=== PATIENT | female | born 1945 | race Caucasian/White ===

== ENCOUNTER 2019-04-07 14:15 | Observation (INO) | payer MEDICARE, OTHER ==
[2019-04-07] MEDS ORDERED: Sodium Chloride 0.9% 10 ML Syringe FLUSH PRN (14:17)
[2019-04-07] MEDS: Sodium Chloride 0.9% 1,000 ML IV SCH (16:22)
[2019-04-07] MEDS ORDERED: Warfarin 2.5 MG Tab PO SCH (18:00)
[2019-04-07] MEDS: Carvedilol 12.5 MG Tab PO SCH (18:11)
[2019-04-07] MEDS: Fluticasone Propionate Nasal Spray 16 GM Bottle NASBOTH SCH (20:21)
[2019-04-07] MEDS ORDERED: Digoxin 125 MCG Tab PO SCH (21:00)
[2019-04-07] MEDS ORDERED: atorvaSTATin 10 MG Tab PO SCH (21:00)
[2019-04-08] MEDS: Sodium Chloride 0.9% 1,000 ML IV SCH (05:23)
[2019-04-08 08:04] LABS: ANION GAP 14.7 mmol/L (5-15)
[2019-04-08] MEDS ORDERED: Allopurinol 100 MG Tab PO SCH (09:00)
[2019-04-08] MEDS ORDERED: Spironolactone 25 MG Tab PO SCH (09:00)
[2019-04-08] MEDS ORDERED: Lisinopril 5 MG Tab PO SCH (09:00)
[2019-04-08] MEDS: Fluticasone Propionate Nasal Spray 16 GM Bottle NASBOTH SCH (09:08)
[2019-04-08] MEDS: Carvedilol 12.5 MG Tab PO SCH (09:11)
--- NOTE | 2019-04-08 09:58 | PCM.DCSUM1 ---
Discharge Summary - Hospital Course Diagnosis: Stroke: No - Discharge Data Discharge Date: 04/08/19 Discharge Disposition: Home, Self-Care 01 Condition: Good - Referral to Home Health Primary Care Physician: Dee Clark MD - Discharge Plan *PRESCRIPTION DRUG MONITORING PROGRAM REVIEWED*: Not Applicable *COPY OF PRESCRIPTION DRUG MONITORING REPORT IN PATIENT DONALD: Not Applicable Prescriptions/Med Rec: Cephalexin [Keflex] 500 mg PO BID 5 Days #10 capsule Home Medications: Home Meds Allopurinol [Zyloprim] 200 mg PO DAILY 04/07/16 [History] Cholecalciferol (Vitamin D3) [Vitamin D3] 1,000 units PO DAILY 04/07/16 [History ] Digoxin 0.125 mg PO BEDTIME 04/07/16 [History] Lisinopril 5 mg PO DAILY 04/07/16 [History] Spironolactone 25 mg PO DAILY 04/07/16 [History] Warfarin [Coumadin] 5 mg PO MOWEFR 04/07/16 [History] atorvaSTATin [Lipitor] 10 mg PO BEDTIME 04/07/16 [History] carvediloL [Carvedilol] 37.5 mg PO BIDMEALS 04/07/16 [History] Calcium Carbonate/Vitamin D3 [Calcium 600-Vit D3 400 Tablet] 1 each PO DAILY@ 0800 04/07/19 [History] Fluticasone Propionate [Flonase] 1 spray NASBOTH BID 04/07/19 [History] Multivit-Min/Iron/Folic/Lutein [Centrum Silver Women Tablet] 1 each PO DAILY [History] Warfarin [Coumadin] 2.5 mg PO SUTUTHSA 04/07/19 [History] metroNIDAZOLE [Flagyl] 500 mg PO BID 04/07/19 [History] Cephalexin [Keflex] 500 mg PO BID 5 Days #10 capsule 04/08/19 [Rx] Referrals: Dee Clark MD [Primary Care Provider] - 04/15/19 10:00 am (Within one week ) - Discharge Summary/Plan Comment DC Time >30 min.: Yes Discharge Summary/Plan Comment: Final Dx ASAEL, prerenal, resolved Dehydration, prerenal, resolved Urinary tract infection, History Summary 73yr female admitted into observation yesterday afternoon by Dr. Sujey echavarria due to weakness, dehydration, acute kidney injury all sequela of a presumed UTI. Patient was diagnosed with UTI and had not picked up her medication. Patient upon evaluation reported not feeling well in the past few days with some generalized body aches, chills and feverish coupled with bladder discomfort. Patient admitted not feeling of her had been able to keep fluids down. Prior to admission she was administered 1 g of ceftriaxone. Blood cultures were taken and she was admitted into observation with IV fluids and close monitoring. Hospital course, Short overnight stay was quite uneventful, the next morning on rounds she was afebrile, still felt somewhat weak however was determined to be discharged, IV fluids were given at 75 cc an hour isotonic saline, she was euvolemic with equal intake/output. Was withdrawn, she was given 1 g of ceftriaxone prior to admission. - General Info Date of Service: 04/08/19 Functional Status: Reports: Pain Controlled, Tolerating Diet, Ambulating, Urinating. Denies: New Symptoms - Review of Systems General: Reports: Fatigue (mild). Denies: Fever, Weakness HEENT: Reports: No Symptoms Pulmonary: Reports: No Symptoms Cardiovascular: Reports: No Symptoms Gastrointestinal: Reports: No Symptoms Skin: Denies: Dryness Neurological: Denies: Confusion - Patient Data Vitals - Most Recent: Last Vital Signs Temp 98.2 F 04/08/19 06:17 Pulse 60 04/08/19 09:11 Resp 20 04/08/19 06:17 BP 103/41 L 04/08/19 09:11 Pulse Ox 93 L 04/08/19 06:17 Weight - Most Recent: 142 lb 3.2 oz I&O - Last 24 hours: Intake & Output 04/07/19 04/08/19 04/08/19 22:59 06:59 14:59 Intake Total 956 1301 Output Total 500 1700 Balance 456 -399 Lab Results - Last 24 hrs: Laboratory Results - last 24 hr 04/07/19 04/08/19 04/08/19 Range/Units 17:41 07:30 07:30 WBC 7.45 (5.00-10.00) 10^3/uL RBC 3.61 L (3.80-5.50) 10^6/uL Hgb 11.5 L (12.0-16.0) g/dL Hct 33.9 L (37.0-47.0) % MCV 93.9 H (82.0-92.0) fL MCH 31.9 H (27.0-31.0) pg MCHC 33.9 (32.0-36.0) g/dL RDW 13.6 (11.5-14.5) % Plt Count 137 L (150-400) 10^3/uL MPV 10.8 H (7.4-10.4) fL Immature Gran % (Auto) 0.4 (0.0-5.0) % Neut % (Auto) 76.6 H (50.0-70.0) % Lymph % (Auto) 8.3 L (20.0-40.0) % [place] % (Auto) 14.1 H (2.0-8.0) % Eos % (Auto) 0.3 L (1.0-3.0) % Baso % (Auto) 0.3 (0.0-1.0) % Immature Gran # (Auto) 0.03 (0.00-0.50) 10^3/uL Neut # (Auto) 5.71 (2.50-7.00) 10^3/uL Lymph # (Auto) 0.62 L (1.00-4.00) 10^3/uL [place] # (Auto) 1.05 H (0.10-0.80) 10^3/uL Eos # (Auto) 0.02 L (0.10-0.30) 10^3/uL Baso # (Auto) 0.02 (0.00-0.10) 10^3/uL PT TNP INR 1.7 H (0.9-1.1) Sodium 133 L (136-145) mmol/L Potassium 4.4 (3.3-5.3) mmol/L Chloride 100 (98-115) mmol/L Carbon Dioxide 22.7 (21.0-32.0) mmol/L Anion Gap 14.7 (5-15) mmol/L BUN 33 H (6-25) mg/dL Creatinine 1.10 (0.51-1.17) mg/dL Est Cr Clr Drug Dosing 43.63 mL/min Estimated GFR (MDRD) 49 mL/min Glucose 169 H (75 - 99) mg/dL Calcium 8.2 L (8.7-10.3) mg/dL Med Orders - Current: Current Medications Allopurinol (Zyloprim) 200 mg PO DAILY [facility] Last Admin: 04/08/19 09:08 Dose: 200 mg Atorvastatin Calcium (Lipitor) 10 mg PO BEDTIME [facility] Last Admin: 04/07/19 20:21 Dose: 10 mg Carvedilol (Coreg) 37.5 mg PO BIDMEALS [facility] Last Admin: 04/08/19 09:11 Dose: 37.5 mg Ceftriaxone Sodium (Rocephin) 1 gm IVPUSH ONETIME ONE Stop: 04/08/19 14:01 Digoxin (Lanoxin) 125 mcg PO BEDTIME [facility] Last Admin: 04/07/19 20:21 Dose: 125 mcg Fluticasone Propionate (Flonase) 0 gm NASBOTH BID [facility] Last Admin: 04/08/19 09:08 Dose: 1 spray Lisinopril (Prinivil) 5 mg PO DAILY [facility] Last Admin: 04/08/19 09:12 Dose: Not Given Sodium Chloride (Saline Flush) 10 ml FLUSH Q8HR PRN PRN Reason: keep vein open Last Admin: 04/07/19 16:29 Dose: 10 ml Spironolactone (Aldactone) 25 mg PO DAILY [facility] Last Admin: 04/08/19 09:07 Dose: 25 mg Warfarin Sodium (Coumadin) 2.5 mg PO SUTUTHSA [facility] Last Admin: 04/07/19 18:13 Dose: 2.5 mg Warfarin Sodium (Coumadin) 5 mg PO MOWEFR [facility] Discontinued Medications Sodium Chloride (Normal Saline) 1,000 mls @ 125 mls/hr IV ASDIRECTED [facility] Last Infusion: 04/08/19 09:17 Dose: 150 mls/hr - Exam Quality Assessment: Denies: Supplemental Oxygen General: Reports: Alert, Oriented, Cooperative, No Acute Distress Lungs: Reports: Clear to Auscultation, Normal Respiratory Effort Cardiovascular: Reports: Regular Rate, Regular Rhythm GI/Abdominal Exam: Normal Bowel Sounds, Soft, No Distention, Other (no suprapubic/bladder tenderness). No: Distended Back Exam: Denies: CVA Tenderness (L), CVA Tenderness (R) Psy/Mental Status: Reports: Alert, Normal Affect, Normal Mood
[2019-04-08 11:00] VITALS: BP 116/64; PULSE 82
[2019-04-08] MEDS ORDERED: cefTRIAXone 1 GM Vial IVPUSH ONE (14:00)
[2019-04-08] MEDS ORDERED: Warfarin 5 MG Tab PO SCH (18:00)
== END 2019-04-08 14:47 | disposition home or self-care (01) ==
LOC: KA.MS 14:15
PROVIDERS: ADMIT Family Medicine; ATTEND Family Medicine
DX: N17.9 Acute kidney failure, unspecified (principal); E86.0 Dehydration; N39.0 Urinary tract infection, site not specified; I13.0 Hypertensive heart and chronic kidney disease with heart failure and stage 1 through stage 4 chronic kidney disease, or unspecified chronic kidney disease; E11.22 Type 2 diabetes mellitus with diabetic chronic kidney disease; I50.42 Chronic combined systolic (congestive) and diastolic (congestive) heart failure; N18.3 Chronic kidney disease, stage 3 (moderate); I25.10 Atherosclerotic heart disease of native coronary artery without angina pectoris; E78.00 Pure hypercholesterolemia, unspecified; I48.20 Chronic atrial fibrillation, unspecified; M19.90 Unspecified osteoarthritis, unspecified site; Z79.01 Long term (current) use of anticoagulants; Z79.899 Other long term (current) drug therapy; Z88.0 Allergy status to penicillin; Z91.018 Allergy to other foods; Z88.2 Allergy status to sulfonamides; Z95.810 Presence of automatic (implantable) cardiac defibrillator
CPT/HCPCS: 36415; 36416; 80048; 85025; 85610; 87040; 96361; 96374; A9270-GY; G0378; J0696; J7030

== ENCOUNTER 2019-12-22 19:13 | Emergency (ER) | payer MEDICARE, OTHER ==
[2019-12-22] MEDS ORDERED: Sodium Chloride 0.9% 10 ML Syringe FLUSH PRN (19:40)
[2019-12-22] MEDS ORDERED: Ondansetron 4 MG/2 ML SDV IVPUSH ONE (19:41)
[2019-12-22] MEDS ORDERED: Sodium Chloride 0.9% 500 ML IV ONE (19:41)
[2019-12-22] MEDS ORDERED: Meclizine 25 MG Tab PO ONE (20:04)
--- NOTE | 2019-12-22 20:04 | EDM.PDOC ---
ED HPI GENERAL MEDICAL PROBLEM - General Chief Complaint: General Stated Complaint: VOMITTING Time Seen by Provider: 12/22/19 19:50 Source of Information: Reports: Patient History Limitations: Reports: No Limitations - History of Present Illness INITIAL COMMENTS - FREE TEXT/NARRATIVE: 74 YO WF PRESENTS TO ER WITH 4 HOUR HISTORY OF DIZZINESS, WITH ASSOCIATED ATAXIA AND VOMITING X 3. PT REPORTS SYMPTOMS ARE WORSE WITH STANDING. PT DENIES ANY SLURRED SPEECH, CONFUSION, BLURRED VISION OR FOCAL NEURO DEFICITS. PT DENIES FEVER/CHILLS, NO URI SYMPTOMS, NO COUGH/CONGESTION, NO HEADACHE AND NO DIARRHEA. PT REPORTS SIMILAR SYMPTOMS IN THE PAST BUT UNCLEAR IF SHE'S BEEN TOLD IT WAS RELATED TO VERTIGO. PT DENIES CHEST PAIN OR SHORTNESS OF BREATH. PT DENIES ANY PREVIOUS WORKUP FOR SIMILAR SYMPTOMS. Onset: Today Duration: Hour(s): (4) Location: Reports: Head, Generalized Severity: Mild Improves with: Reports: Rest Worsens with: Reports: Movement Associated Symptoms: Reports: No Other Symptoms, Nausea/Vomiting, Weakness. Denies: Confusion, Chest Pain, Cough, Diaphoresis, Fever/Chills, Headaches, Loss of Appetite, Malaise, Rash, Seizure, Shortness of Breath, Syncope - Related Data Allergies Allergy/AdvReac Type Severity Reaction Status Date / Time grapefruit Allergy Hives Verified 12/22/19 19:58 kiwi Allergy Mouth Sores Verified 12/22/19 19:58 Penicillins Allergy Hives Verified 12/22/19 19:58 Home Meds: Home Meds Allopurinol [Zyloprim] 200 mg PO DAILY 04/07/16 [History] Cholecalciferol (Vitamin D3) [Vitamin D3] 1,000 units PO DAILY 04/07/16 [History] Digoxin 0.125 mg PO BEDTIME 04/07/16 [History] Lisinopril 5 mg PO DAILY 04/07/16 [History] Spironolactone 25 mg PO DAILY 04/07/16 [History] Warfarin [Coumadin] 5 mg PO SUTUTHSA 04/07/16 [History] atorvaSTATin [Lipitor] 10 mg PO BEDTIME 04/07/16 [History] carvediloL [Carvedilol] 37.5 mg PO BIDMEALS 04/07/16 [History] Calcium Carbonate/Vitamin D3 [Calcium 600-Vit D3 400 Tablet] 1 each PO DAILY@0800 04/07/19 [History] Fluticasone Propionate [Flonase] 1 spray NASBOTH BID 04/07/19 [History] Multivit-Min/Iron/Folic/Lutein [Centrum Silver Women Tablet] 1 each PO DAILY 04/07/19 [History] Warfarin [Coumadin] 2.5 mg PO MOWEFR 04/07/19 [History] Meclizine [Antivert] 25 mg PO TID #30 tab 12/22/19 [Rx] Ondansetron [Zofran ODT] 4 mg PO Q6H PRN #10 tab.dis 12/22/19 [Rx] Past Medical History HEENT History: Reports: Impaired Vision, Sinusitis Cardiovascular History: Reports: Afib, High Cholesterol, Hypertension, [place] Other Cardiovascular History: implantable cardioverter Respiratory History: Reports: None, SOB Other Respiratory History: SOB on exertion Gastrointestinal History: Reports: Hemorrhoids Other Genitourinary History: current UTI [employer] History: Reports: , Spontaneous Musculoskeletal History: Reports: Arthritis Neurological History: Reports: Concussion, Head Trauma Psychiatric History: Reports: Anxiety, Depression Other Endocrine/Metabolic History: Diabetes Mellitus Hematologic History: Reports: None Immunologic History: Reports: None Oncologic (Cancer) History: Reports: None Dermatologic History: Reports: None - Infectious Disease History Infectious Disease History: Reports: Measles - Past Surgical History HEENT Surgical History: Reports: None Cardiovascular Surgical History: Reports: None GI Surgical History: Reports: Colonoscopy, Polypectomy Female Surgical History: Reports: D&C, Kidney stone extraction Endocrine Surgical History: Reports: None Neurological Surgical History: Reports: None Musculoskeletal Surgical History: Reports: Knee Replacement Dermatological Surgical History: Reports: None Social & Family History - Family History Family Medical History: Noncontributory - Caffeine Use Caffeine Use: Reports: Coffee ED ROS GENERAL - Review of Systems Review Of Systems: See Below Constitutional: Reports: Weakness HEENT: Reports: No Symptoms Respiratory: Reports: No Symptoms Cardiovascular: Reports: No Symptoms Endocrine: Reports: No Symptoms GI/Abdominal: Reports: Nausea, Vomiting : Reports: No Symptoms Musculoskeletal: Reports: No Symptoms Skin: Reports: No Symptoms Neurological: Reports: Dizziness, Gait Disturbance. Denies: Numbness, Paresthesia, Pre-Existing Deficit, Seizure, Syncope, Trouble Speaking, Weakness, Change in Speech Psychiatric: Reports: No Symptoms Hematologic/Lymphatic: Reports: No Symptoms Immunologic: Reports: No Symptoms ED EXAM, GENERAL - Physical Exam Exam: See Below Exam Limited By: No Limitations General Appearance: Alert, WD/WN, No Apparent Distress Eye Exam: Bilateral Eye: EOMI, PERRL Ears: Normal External Exam, Normal Canal, Hearing Grossly Normal, Normal TMs Nose: Normal Inspection, Normal Mucosa, No Blood Throat/Mouth: Normal Inspection, Normal Lips, Normal Teeth, Normal Gums, Normal Oropharynx, Normal Voice, No Airway Compromise Head: Atraumatic, Normocephalic Neck: Normal Inspection, Supple, Non-Tender, Full Range of Motion Respiratory/Chest: No Respiratory Distress, Lungs Clear, Normal Breath Sounds, No Accessory Muscle Use, Chest Non-Tender Cardiovascular: Normal Peripheral Pulses, Regular Rate, Rhythm, No Edema, No Gallop, No JVD, No Murmur, No Rub GI/Abdominal: Normal Bowel Sounds, Soft, Non-Tender, No Organomegaly, No Distention, No Abnormal Bruit, No Mass Back Exam: Normal Inspection, Full Range of Motion, NT Extremities: Normal Inspection, Normal Range of Motion, Non-Tender, Normal Capillary Refill, No Pedal Edema Psychiatric: Normal Affect, Normal Mood Skin Exam: Warm, Dry, Intact, Normal Color, No Rash Lymphatic: No Adenopathy EKG INTERPRETATION EKG Date: 12/22/19 Time: 21:00 Rhythm: A-Fib Rate (Beats/Min): 92 [place]: Normal P-Wave: Present QRS: Normal ST-T: Normal QT: Normal Comparison: NA - No Prior EKG Course - Vital Signs Last Recorded V/S: Last Vital Signs Temp -17.3 C L 12/22/19 19:19 Pulse 91 12/22/19 19:19 Resp 15 12/22/19 19:19 BP 155/106 H 12/22/19 19:19 Pulse Ox 98 12/22/19 19:19 - Orders/Labs/Meds Orders: Active Orders 24 hr Category Date Time Status EKG Documentation Completion [RC] ASDIRECTED Care 12/22/19 20:05 Ordered Orthostatic Vital Signs [RC] ASDIRECTED Care 12/22/19 20:10 Ordered Peripheral IV Care [RC] . DIRECTED Care 12/22/19 19:40 Active Chest 1V Frontal [CR] Stat Exams 09/29/20 20:04 Ordered Head wo Cont [CT] Stat Exams 12/22/19 20:04 Ordered UA W/MICROSCOPIC [URIN] Stat Lab 12/22/19 20:28 Results Sodium Chloride 0.9% [Saline Flush] Med 12/22/19 19:40 Active 10 ml FLUSH Q8HR PRN Peripheral IV Insertion Adult [OM.PC] Routine Oth 12/22/19 19:40 Ordered EKG 12 Lead [EK] Stat Ther 12/22/19 20:04 Ordered Medication Orders Sodium Chloride (Saline Flush) 10 ml FLUSH Q8HR PRN PRN Reason: keep vein open Labs: Laboratory Tests 12/22/19 12/22/19 12/22/19 Range/Units 19:30 19:30 19:30 WBC 9.79 (5.00-10.00) 10^3/uL RBC 4.01 (3.80-5.50) 10^6/uL Hgb 12.9 (12.0-16.0) g/dL Hct 39.2 (37.0-47.0) % MCV 97.8 H D (82.0-92.0) fL MCH 32.2 H (27.0-31.0) pg MCHC 32.9 (32.0-36.0) g/dL RDW 13.1 (11.5-14.5) % Plt Count 143 L (150-400) 10^3/uL MPV 10.7 H (7.4-10.4) fL Immature Gran % (Auto) 0.3 (0.0-5.0) % Neut % (Auto) 81.4 H (50.0-70.0) % Lymph % (Auto) 10.1 L (20.0-40.0) % [place] % (Auto) 6.8 (2.0-8.0) % Eos % (Auto) 0.9 L (1.0-3.0) % Baso % (Auto) 0.5 (0.0-1.0) % Neut # (Auto) 7.96 H (2.50-7.00) 10^3/uL Lymph # (Auto) 0.99 L (1.00-4.00) 10^3/uL [place] # (Auto) 0.67 (0.10-0.80) 10^3/uL Eos # (Auto) 0.09 L (0.10-0.30) 10^3/uL Baso # (Auto) 0.05 (0.00-0.10) 10^3/uL Immature Gran # (Auto) 0.03 (0.00-0.50) 10^3/uL PT 29.2 H (9.2-11.2) SEC INR 3.0 H (0.9-1.1) Sodium 137 (136-145) mmol/L Potassium 4.5 (3.3-5.3) mmol/L Chloride 101 (98-115) mmol/L Carbon Dioxide 27.0 (21.0-32.0) mmol/L Anion Gap 13.5 (5-15) mmol/L BUN 24 (6-25) mg/dL Creatinine 1.04 (0.51-1.17) mg/dL Est Cr Clr Drug Dosing 44.85 mL/min Estimated GFR (MDRD) 52 mL/min Glucose 158 H (75 - 99) mg/dL Calcium 9.0 (8.7-10.3) mg/dL Total Bilirubin 0.8 (0.2-1.0) mg/dL AST 21 (15-37) U/L ALT 19 (12-78) U/L Alkaline Phosphatase 83 (46-116) IU/L Total Protein 7.2 (6.4-8.2) g/dL Albumin 3.73 (3.00-4.80) g/dL Lipase 245 (73-393) U/L Urine Color (YELLOW) Urine Appearance (CLEAR) Urine pH (5.0-9.0) Ur Specific [place] (1.005-1.030) Urine Protein (NEGATIVE) mg/dL Urine Glucose (UA) (NEGATIVE) mg/dL Urine Ketones (NEGATIVE) mg/dL Urine Occult Blood (NEGATIVE) Urine Nitrite (NEGATIVE) Urine Bilirubin (NEGATIVE) Urine Urobilinogen (0.2-1.0) E.U./dL Ur Leukocyte Esterase (NEGATIVE) 12/22/19 Range/Units 20:28 WBC (5.00-10.00) 10^3/uL RBC (3.80-5.50) 10^6/uL Hgb (12.0-16.0) g/dL Hct (37.0-47.0) % MCV (82.0-92.0) fL MCH (27.0-31.0) pg MCHC (32.0-36.0) g/dL RDW (11.5-14.5) % Plt Count (150-400) 10^3/uL MPV (7.4-10.4) fL Immature Gran % (Auto) (0.0-5.0) % Neut % (Auto) (50.0-70.0) % Lymph % (Auto) (20.0-40.0) % [place] % (Auto) (2.0-8.0) % Eos % (Auto) (1.0-3.0) % Baso % (Auto) (0.0-1.0) % Neut # (Auto) (2.50-7.00) 10^3/uL Lymph # (Auto) (1.00-4.00) 10^3/uL [place] # (Auto) (0.10-0.80) 10^3/uL Eos # (Auto) (0.10-0.30) 10^3/uL Baso # (Auto) (0.00-0.10) 10^3/uL Immature Gran # (Auto) (0.00-0.50) 10^3/uL PT (9.2-11.2) SEC INR (0.9-1.1) Sodium (136-145) mmol/L Potassium (3.3-5.3) mmol/L Chloride (98-115) mmol/L Carbon Dioxide (21.0-32.0) mmol/L Anion Gap (5-15) mmol/L BUN (6-25) mg/dL Creatinine (0.51-1.17) mg/dL Est Cr Clr Drug Dosing mL/min Estimated GFR (MDRD) mL/min Glucose (75 - 99) mg/dL Calcium (8.7-10.3) mg/dL Total Bilirubin (0.2-1.0) mg/dL AST (15-37) U/L ALT (12-78) U/L Alkaline Phosphatase (46-116) IU/L Total Protein (6.4-8.2) g/dL Albumin (3.00-4.80) g/dL Lipase (73-393) U/L Urine Color Yellow (YELLOW) Urine Appearance Clear (CLEAR) Urine pH 6.5 (5.0-9.0) Ur Specific [place] 1.025 (1.005-1.030) Urine Protein Negative (NEGATIVE) mg/dL Urine Glucose (UA) Negative (NEGATIVE) mg/dL Urine Ketones Trace H (NEGATIVE) mg/dL Urine Occult Blood Trace-intact H (NEGATIVE) Urine Nitrite Negative (NEGATIVE) Urine Bilirubin Negative (NEGATIVE) Urine Urobilinogen 0.2 (0.2-1.0) E.U./dL Ur Leukocyte Esterase Negative (NEGATIVE) Meds: Medications Generic Name Dose Route Start Last Admin Trade Name Freq PRN Reason Stop Dose Admin Sodium Chloride 10 ml 12/22/19 19:40 Saline Flush FLUSH Q8HR PRN keep vein open Discontinued Medications Generic Name Dose Route Start Last Admin Trade Name Freq PRN Reason Stop Dose Admin Sodium Chloride 500 mls @ 999 mls/hr 12/22/19 19:41 12/22/19 19:55 Normal Saline IV 12/22/19 20:11 999 mls/hr BOLUS ONE Administration Meclizine HCl 25 mg 12/22/19 20:04 12/22/19 20:14 Antivert PO 12/22/19 20:05 25 mg ONETIME ONE Administration Ondansetron HCl 4 mg 12/22/19 19:41 12/22/19 19:46 Zofran IVPUSH 12/22/19 19:42 4 mg ONETIME ONE Administration - Radiology Interpretation Free Text/Narrative:: CT BRAIN- NAD CXR- NAD - Re-Assessments/Exams Free Text/Narrative Re-Assessment/Exam: 12/22/19 20:54 ORTHOSTATIC BP- NEGATIVE PT ABLE TO STAND WITHOUT DIZZINESS AFTER IVF AND ANTIVERT. PT REPORTS DIZZINESS HAS IMPROVED AND HAS PRETTY MUCH RESOLVED AFTER ER TREATMENT. PT ALERT AND ORIENTED X 4 AND IN NAD; GCS-15. PT DENIES NAUSEA/VOMITING/DIARRHEA AT THIS TIME Departure - Departure Time of Disposition: 21:02 Disposition: Home, Self-Care 01 Condition: Good Clinical Impression: Hyperglycemia, Dizziness Vomiting Qualifiers: Vomiting type: unspecified Vomiting Intractability: non-intractable Nausea presence: with nausea Qualified Code(s): R11.2 - Nausea with vomiting, unspecified - Discharge Information Prescriptions: Meclizine [Antivert] 25 mg PO TID #30 tab Ondansetron [Zofran ODT] 4 mg PO Q6H PRN #10 tab.dis PRN Reason: Vomiting Instructions: Hyperglycemia, Vomiting, Adult, Dizziness, [id number] Referrals: Dee Clark MD [Primary Care Provider] - Forms: ED Department Discharge Additional Instructions: 1. DISCHARGE HOME 2. ZOFRAN 4MG EVERY 6-8 HOURS NEEDED #10 3. ANTIVERT 25MG 3X/DAY FOR DIZZINESS 4. FOLLOW UP WITH PCP FOR RECHECK NEXT 24-48 HOURS 5. RETURN TO ER FOR WORSENING SYMPTOMS 6. CONSIDER HGBA1C FOR FURTHER EVALUATION OF HYPERGLYCEMIA Sepsis Event Note (ED) - Evaluation Sepsis Screening Result: No Definite Risk - Focused Exam Vital Signs: Vital Signs Temp Pulse Resp BP Pulse Ox 12/22/19 19:19 -17.3 C L 91 15 155/106 H 98 - My Orders Last 24 Hours: My Active Orders 12/22/19 19:40 Peripheral IV Care [RC] . DIRECTED Sodium Chloride 0.9% [Saline Flush] 10 ml FLUSH Q8HR PRN Peripheral IV Insertion Adult [OM.PC] Routine 12/22/19 20:04 Chest 1V Frontal [CR] Stat Head wo Cont [CT] Stat EKG 12 Lead [EK] Stat 12/22/19 20:05 EKG Documentation Completion [RC] ASDIRECTED 12/22/19 20:10 Orthostatic Vital Signs [RC] ASDIRECTED 12/22/19 20:28 UA W/MICROSCOPIC [URIN] Stat - Assessment/Plan Last 24 Hours: My Active Orders 12/22/19 19:40 Peripheral IV Care [RC] . DIRECTED Sodium Chloride 0.9% [Saline Flush] 10 ml FLUSH Q8HR PRN Peripheral IV Insertion Adult [OM.PC] Routine 12/22/19 20:04 Chest 1V Frontal [CR] Stat Head wo Cont [CT] Stat EKG 12 Lead [EK] Stat 12/22/19 20:05 EKG Documentation Completion [RC] ASDIRECTED 12/22/19 20:10 Orthostatic Vital Signs [RC] ASDIRECTED 12/22/19 20:28 UA W/MICROSCOPIC [URIN] Stat Assessment:: 1. DIZZINESS- SUSPECT VERTIGO 2. N/V Plan: 1. DISCHARGE HOME 2. ZOFRAN 4MG EVERY 6-8 HOURS NEEDED #10 3. ANTIVERT 25MG 3X/DAY FOR DIZZINESS 4. FOLLOW UP WITH PCP FOR RECHECK NEXT 24-48 HOURS 5. RETURN TO ER FOR WORSENING SYMPTOMS 6. CONSIDER HGBA1C FOR FURTHER EVALUATION OF HYPERGLYCEMIA
[2019-12-22 20:17] LABS: ANION GAP 13.5 mmol/L (5-15)
--- NOTE | 2019-12-22 21:01 | CR ---
[id number] RAD/RAD Chest Portable EXAM: RAD Chest Portable INDICATION: DIZZY COMPARISON: April 07, 2016. DISCUSSION: Left chest wall cardiac conduction device. Cardiomediastinal silhouette is stable in size and contour. No infiltrate, effusion, pneumothorax, or edema. Pulmonary hyperinflation. IMPRESSION: No acute cardiopulmonary abnormality. Eb Blanco DO 12/22/19 2100 Thank you for allowing us to participate in the care of your patient.
--- NOTE | 2019-12-22 21:03 | CT ---
[id number] CT/CT Head WO IV EXAM: CT Head WO IV CLINICAL DATA: DIZZY COMPARISON STUDY: None FINDINGS: No intracranial hemorrhage, extra-axial fluid collection, mass, or acute ischemia. Generalized parenchymal atrophy with scattered areas of nonspecific white matter disease, commonly seen as sequela of chronic microvascular ischemia. Soft tissues are unremarkable. Paranasal sinuses and mastoid air cells are clear. IMPRESSION: No acute intracranial findings. Eb Blanco DO 12/22/19 [id number] Thank you for allowing us to participate in the care of your patient.
[2019-12-22 23:25] VITALS: BP 153/97; PULSE 104
== END 2019-12-22 21:28 | disposition home or self-care (01) ==
LOC: KA.ED 19:13
DX: R11.2 Nausea with vomiting, unspecified (principal); E11.65 Type 2 diabetes mellitus with hyperglycemia; I48.91 Unspecified atrial fibrillation; E78.00 Pure hypercholesterolemia, unspecified; I10 Essential (primary) hypertension; I25.2 Old myocardial infarction; M19.90 Unspecified osteoarthritis, unspecified site; F41.9 Anxiety disorder, unspecified; F32.9 Major depressive disorder, single episode, unspecified; Z88.8 Allergy status to other drugs, medicaments and biological substances; Z88.0 Allergy status to penicillin; Z79.899 Other long term (current) drug therapy
CPT/HCPCS: 36415; 70450; 71045; 80053; 81001; 83690; 85025; 85610; 96361; 96374; 99284; 99284-25; A9270-GY; J2405; J7040

== ENCOUNTER 2020-05-16 08:52 | Day surgery (SDC) | payer MEDICARE, OTHER ==
[2020-05-16] MEDS ORDERED: Sodium Chloride 0.9% 10 ML Syringe FLUSH PRN (09:00)
[2020-05-16] MEDS ORDERED: Sodium Chloride 0.9% 1,000 ML IV SCH (09:00)
[2020-05-16] MEDS ORDERED: Propofol 200 MG/20 ML SDV ONE (10:01)
[2020-05-16] MEDS ORDERED: ePHEDrine 50 MG/ML SDV ONE (10:55)
--- NOTE | 2020-05-16 11:01 | PCM.PRNOTE ---
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 She has repeatedly declinedrepeat colonoscopy, but agreed to FIT testing the past two years: 09/08/18 FIT negative, but 04/22/20 FIT positive. CONSENT: Informed consent was obtained prior to the procedure after discussion of the risks (including pain, bleeding, infection, perforation, missed polyps, inability to completely remove polyps or complete procedure necessitating repeat colonoscopy, adverse reaction to anesthesia, cardiovascular event), benefits and alternatives and expected outcomes. The patient expressed understanding and wished to proceed. Verbal consent given and consent form signed. PROCEDURAL PAUSE: Completed SEDATION: Per anesthesia DESCRIPTION OF PROCEDURE: Patient was placed in the left lateral decubitus position. After adequate sedation and anesthetic was administered, a rectal exam was performed revealing external hemorrhoid tags. A lubricated Olympus Video Colonoscope was inserted into the rectum and air insufflation was performed. The colonoscope was advanced through the rectum, sigmoid, descending, transverse, and ascending colon without difficulties. The cecum was reached and the ileocecal valve as well as the appendiceal orifice were identified and pictorially documented. After adequate visualization of the cecum, the scope was withdrawn, giving 360- degree views of the colonic mucosa and retroflexion was performed in the rectum with the following findings noted: Ileocecal valve: Normal Cecum: Normal Ascending colon: Mildly friable mucosa without discrete lesion or mucosal abnormality. Hepatic flexure: Normal Transverse colon: One 0.6cm polyp at 1m removed with hot snare; subsequent complete polypoid tissue removal and hemostasis noted. Splenic flexure: Normal Descending colon: Normal Sigmoid colon: Normal Rectum: Normal The scope was straightened, air suction performed, and the scope withdrawn without complication. Preparation adequacy [place] Bowel Prep 10/31. IMPRESSION: Colonoscopy performed revealing - One small polyp at 1m, pathology now pending - External hemorrhoid tags PLAN: Will contact the patient when pathology results received with recommendation for repeat colonoscopy. Encourage adequate fiber diet and bowel regimen to ensure avoidance of constipation.
[2020-05-16 13:00] VITALS: BP 95/61; PULSE 78
== END 2020-05-16 12:50 | disposition home or self-care (01) ==
LOC: KA.SDS 08:52
PROVIDERS: ATTEND Family Medicine
DX: D12.3 Benign neoplasm of transverse colon (principal); K64.4 Residual hemorrhoidal skin tags; I48.20 Chronic atrial fibrillation, unspecified; I25.10 Atherosclerotic heart disease of native coronary artery without angina pectoris; N18.30 Chronic kidney disease, stage 3 unspecified; E11.22 Type 2 diabetes mellitus with diabetic chronic kidney disease; E78.00 Pure hypercholesterolemia, unspecified; D69.6 Thrombocytopenia, unspecified; E11.42 Type 2 diabetes mellitus with diabetic polyneuropathy; I13.0 Hypertensive heart and chronic kidney disease with heart failure and stage 1 through stage 4 chronic kidney disease, or unspecified chronic kidney disease; Z79.899 Other long term (current) drug therapy; Z88.0 Allergy status to penicillin; Z88.8 Allergy status to other drugs, medicaments and biological substances; Z91.018 Allergy to other foods; Z98.890 Other specified postprocedural states
CPT/HCPCS: 00812; 82962; 85610; 88305; J2704; J7030

== ENCOUNTER 2021-08-14 16:07 | Inpatient (IN) | payer MEDICARE, OTHER ==
[2021-08-14] MEDS ORDERED: Sodium Chloride 0.9% 10 ML Syringe FLUSH PRN ×2 (16:38→17:05)
[2021-08-14] MEDS ORDERED: Sodium Chloride 0.9% 1,000 ML IV ONE (17:05)
[2021-08-14] MEDS ORDERED: Acetaminophen 500 MG Tab PO ONE (17:15)
[2021-08-14 17:31] LABS: ANION GAP 14.7 mmol/L (5-15); SODIUM,NA 121 mmol/L (136-145)
[2021-08-14 17:34] LABS: CHLORIDE,CL 87 mmol/L (98-107)
[2021-08-14] MEDS ORDERED: cefTRIAXone 1 GM Vial IVPUSH ONE (18:03)
[2021-08-14] MEDS ORDERED: Azithromycin 500 MG in Sodium Chloride 0.9% 250 ML IV ONE (18:03)
[2021-08-14 18:07] LABS: PTT,PARTIAL THROMBOPLSTIN TIME 37.7 SEC (22.8-31.4)
[2021-08-14] MEDS ORDERED: Warfarin 2.5 MG Tab PO ONE (19:30)
[2021-08-14] MEDS ORDERED: Carvedilol 12.5 MG Tab PO ONE (19:30)
[2021-08-14] MEDS: Sodium Chloride 0.9% 1,000 ML IV SCH (19:49)
[2021-08-14] MEDS ORDERED: Glucagon,Human Recombinant 1 MG Vial IM PRN (20:09)
[2021-08-14] MEDS ORDERED: 50% Dextrose in Water 50 ML Syringe IVPUSH PRN (20:09)
[2021-08-14] MEDS: atorvaSTATin 10 MG Tab PO SCH (21:36)
[2021-08-14] MEDS: Digoxin 125 MCG Tab PO SCH (21:54)
[2021-08-14] MEDS ORDERED: Insulin Lispro 100 Unit/ML 3 ML KwikPen SUBCUT SCH (22:00)
[2021-08-14 22:23] LABS: ANION GAP 14.7 mmol/L (5-15)
[2021-08-14] MEDS ORDERED: Loperamide 2 MG Cap PO ONE (22:57)
[2021-08-14] MEDS ORDERED: Loperamide 2 MG Cap PO PRN (22:58)
[2021-08-15] MEDS: guaiFENesin/Dextromethorphan 100-10 MG/5 ML Soln 5 ML Cup PO PRN ×3 (00:36→16:26)
[2021-08-15] MEDS: Sodium Chloride 0.9% 1,000 ML IV SCH ×3 (03:49→21:10)
[2021-08-15] MEDS: Acetaminophen 325 MG Tab PO PRN (07:31)
[2021-08-15 07:47] LABS: ANION GAP 13.6 mmol/L (5-15)
[2021-08-15] MEDS: Carvedilol 12.5 MG Tab PO SCH ×2 (08:13→18:01)
[2021-08-15] MEDS: Insulin Lispro 100 Unit/ML 3 ML KwikPen SUBCUT SCH ×5 (08:13→21:02)
[2021-08-15] MEDS: Allopurinol 100 MG Tab PO SCH (08:13)
[2021-08-15] MEDS ORDERED: Azithromycin 500 MG in Sodium Chloride 0.9% 250 ML IV SCH (11:00)
[2021-08-15] MEDS ORDERED: cefTRIAXone 1 GM Vial IVPUSH SCH (11:00)
[2021-08-15] MEDS: Azithromycin 500 MG in Sodium Chloride 0.9% 250 ML IV SCH (17:08)
[2021-08-15] MEDS: cefTRIAXone 1 GM Vial IVPUSH SCH (17:08)
[2021-08-15] MEDS ORDERED: Warfarin 5 MG Tab PO SCH (18:00)
[2021-08-15] MEDS: Digoxin 125 MCG Tab PO SCH (18:01)
[2021-08-15] MEDS: atorvaSTATin 10 MG Tab PO SCH (20:52)
[2021-08-16] MEDS: guaiFENesin/Dextromethorphan 100-10 MG/5 ML Soln 5 ML Cup PO PRN ×3 (00:03→21:55)
[2021-08-16] MEDS: Sodium Chloride 0.9% 1,000 ML IV SCH ×3 (05:12→14:56)
[2021-08-16 07:59] LABS: ANION GAP 16.2 mmol/L (5-15); CHLORIDE,CL 94 mmol/L (98-107); SODIUM,NA 128 mmol/L (136-145)
[2021-08-16] MEDS: Carvedilol 12.5 MG Tab PO SCH ×2 (08:04→17:54)
[2021-08-16] MEDS: Insulin Lispro 100 Unit/ML 3 ML KwikPen SUBCUT SCH ×4 (08:04→22:01)
[2021-08-16] MEDS: Allopurinol 100 MG Tab PO SCH (08:05)
[2021-08-16] MEDS ORDERED: Magnesium Sulfate/Water 2 GM in Premix Bag 1 BAG IV ONE (09:49)
[2021-08-16] MEDS: Albuterol/Ipratropium 3.0-0.5 MG/3 ML Neb Soln NEB PRN ×2 (14:23→22:18)
[2021-08-16] MEDS: cefTRIAXone 1 GM Vial IVPUSH SCH (17:52)
[2021-08-16] MEDS: Azithromycin 500 MG in Sodium Chloride 0.9% 250 ML IV SCH (17:52)
[2021-08-16] MEDS: Digoxin 125 MCG Tab PO SCH (17:55)
[2021-08-16] MEDS ORDERED: Warfarin 2.5 MG Tab PO SCH (18:00)
[2021-08-16] MEDS: Acetaminophen 325 MG Tab PO PRN (19:39)
[2021-08-16] MEDS: Carboxymethylcellulose Sodium 0.5% Ophth Soln 15 ML Bottle EYEBOTH PRN ×2 (20:09→22:32)
[2021-08-16] MEDS: atorvaSTATin 10 MG Tab PO SCH (21:53)
[2021-08-17] MEDS: Sodium Chloride 0.9% 1,000 ML IV SCH (02:08)
[2021-08-17 07:58] LABS: ANION GAP 13.6 mmol/L (5-15); CHLORIDE,CL 96 mmol/L (98-107); SODIUM,NA 128 mmol/L (136-145)
[2021-08-17] MEDS: Insulin Lispro 100 Unit/ML 3 ML KwikPen SUBCUT SCH ×2 (08:01→11:56)
[2021-08-17] MEDS: Carvedilol 12.5 MG Tab PO SCH (08:02)
[2021-08-17] MEDS: Allopurinol 100 MG Tab PO SCH (08:02)
[2021-08-17] MEDS: Carboxymethylcellulose Sodium 0.5% Ophth Soln 15 ML Bottle EYEBOTH PRN (08:48)
[2021-08-17] MEDS: guaiFENesin/Dextromethorphan 100-10 MG/5 ML Soln 5 ML Cup PO PRN (08:49)
[2021-08-17] MEDS: Albuterol/Ipratropium 3.0-0.5 MG/3 ML Neb Soln NEB PRN ×2 (08:50→12:49)
[2021-08-17] MEDS ORDERED: Magnesium Sulfate/Water 2 GM in Premix Bag 1 BAG IV ONE (10:00)
[2021-08-17 11:19] VITALS: BP 120/67; PULSE 78
== END 2021-08-17 13:05 | disposition home or self-care (01) | DRG 640 ==
LOC: KA.ED 16:07 → KA.MS 18:04
PROVIDERS: ADMIT Physician Assistant Medical; ATTEND Family Medicine
DX: E87.1 Hypo-osmolality and hyponatremia (principal); J18.9 Pneumonia, unspecified organism; E83.42 Hypomagnesemia; H54.7 Unspecified visual loss; Z66 Do not resuscitate; I48.91 Unspecified atrial fibrillation; Z20.822 Contact with and (suspected) exposure to COVID-19; I10 Essential (primary) hypertension; Z95.818 Presence of other cardiac implants and grafts; M19.90 Unspecified osteoarthritis, unspecified site; E78.00 Pure hypercholesterolemia, unspecified; H91.90 Unspecified hearing loss, unspecified ear; F41.9 Anxiety disorder, unspecified; F32.A Depression, unspecified; E11.65 Type 2 diabetes mellitus with hyperglycemia; Z96.652 Presence of left artificial knee joint; Z88.2 Allergy status to sulfonamides; Z88.0 Allergy status to penicillin; Z88.1 Allergy status to other antibiotic agents; Z91.018 Allergy to other foods; Z79.899 Other long term (current) drug therapy; Z79.01 Long term (current) use of anticoagulants; I25.2 Old myocardial infarction; Z87.440 Personal history of urinary (tract) infections
CPT/HCPCS: 36415; 71045; 80048; 80053; 81001; 82947; 83605; 83735; 84145; 85025; 85610; 85730; 86140; 87040; 94640; 96361; 96374; 96375; 99284-25; A9270-GY; J0456; J0696; J1815-GY; J3475; J7030; J7050; J7620-GY; U0002